=== PATIENT | male | born 1935 | race Caucasian/White ===

== ENCOUNTER 2017-10-28 23:39 | Emergency (ER) | payer OTHER ==
[~2017-10-28] VITALS: Ht 170.2 cm; Wt 99.2 kg
[~2017-10-28 23:39] MED LIST: ACCU-CHEK COMPACT ST; ALEVE LIQUID G220 MG; AMARYL1 MG PO; BENTYL10 MG; LOTREL 10/21 CAPSULE PO; METFORMIN HCL1000 M1 PO; NEURONTIN300 MG PO; NORTRIPTYLINE H10 MG; OMEPRAZOLE40 M1 PO; PRANDIN2 MG; PRANDIN2 MG PO; SIMVASTATIN40 MG PO; SOFTCLIX1 EAC2; VITAMIN B-1250 MC3; ZOFRAN4 MG PO
[2017-10-29 00:05] VITALS: BP 136/69
== END 2017-10-29 01:00 | disposition left against medical advice (07) ==
LOC: EME 23:39
DX: R73.9 Hyperglycemia, unspecified (principal); Z53.21 Procedure and treatment not carried out due to patient leaving prior to being seen by health care provider
CPT/HCPCS: 82948

== ENCOUNTER 2017-11-15 01:59 | Observation (INO) | payer OTHER ==
[~2017-11-15] VITALS: Ht 170.2 cm; Wt 104.8 kg
[~2017-11-15 01:59] MED LIST changes: -AMARYL1 MG PO; +AMARYL2 MG PO; +ATORVASTATIN CA20 MG PO; -BENTYL10 MG; +BENTYL10 MG PO; +CYANOCOBAL1000 MCG/2 IM; -OMEPRAZOLE40 M1 PO; +PROTONIX40 MG PO; -SIMVASTATIN40 MG PO; -VITAMIN B-1250 MC3
[2017-11-15 02:24] LABS: HEMATOCRIT 32.7 % (38.0-50.0); HEMOGLOBIN 11.6 G/DL (12.5-16.6); MCH 34.6 PG (29.0-34.0); MCHC 35.5 G/DL (30.0-36.0); MCV 97.6 FL (86-99); PLATELET COUNT 213 K/uL (156-360); RBC DIS.WIDTH-CV 12.3 % (11.8-14.6); RBC DIS.WIDTH-SD 44.3 % (39-53); RED BLOOD COUNT 3.35 M/uL (4.00-5.50); WHITE BLOOD COUNT 7.1 K/uL (4.1-10.2)
[2017-11-15 02:32] LABS: CHLORIDE 100 mEq/L (99-109); POTASSIUM 4.6 mEq/L (3.7-5.4); SODIUM 134 mEq/L (136-147)
[2017-11-15 02:35] LABS: GLUCOSE 297 mg/dL (70-99); TOTAL PROTEIN 6.6 g/dL (6.4-8.3)
[2017-11-15 02:37] LABS: TOTAL BILIRUBIN 0.5 mg/dL (0.0-1.0)
[2017-11-15 02:38] LABS: ALKALINE PHOSPHATASE 53 IU/L (3-129); CREATININE 1.6 mg/dL (0.6-1.3); GFR ESTIMATE (CALCULATED) 44 mL/min/ (58.99-99999)
[2017-11-15 02:39] LABS: UREA NITROGEN (BUN) 31 mg/dL (9-23)
[2017-11-15 02:40] LABS: AST (GOT) 13 IU/L (2-34)
[2017-11-15 02:41] LABS: ALT (GPT) 15 IU/L (3-49)
[2017-11-15 02:42] LABS: LIPASE 14 U/L (1.0-51.0)
[2017-11-15 02:44] LABS: TROP-I INTERPRETATION NEGATIVE; TROPONIN-I 0.02 ng/mL (0.0-0.30)
[2017-11-15 03:32] LABS: APPEARANCE CLEAR ((CLEAR)); BILIRUBIN NEGATIVE; BLOOD NEGATIVE; COLOR STRAW ((YELLOW)); GLUCOSE (STRIP) >=500; KETONES NEGATIVE; LEUKOCYTES NEGATIVE; NITRITE NEGATIVE; PROTEIN (STRIP) NEGATIVE; SPECIFIC GRAVITY 1.013 (1.000-1.030); UCUL ADDED? NO; UROBILINOGEN 0.2 MG/DL (0.2-1.0)
[2017-11-15 04:56] VITALS: BP 156/73
[2017-11-15 08:33] VITALS: BP 149/70
[2017-11-15] MEDS ORDERED: LANTUS 10100 UNITS/ SQ (08:48)
[2017-11-15 10:40] VITALS: BP 195/85
[2017-11-15] MEDS ORDERED: DIAZEPAM5 MG PO (12:35)
[2017-11-15] MEDS ORDERED: ASPIR-LOW81 MG PO (12:35)
[2017-11-15] MEDS ORDERED: CELECOXIB100 MG PO (12:35)
[2017-11-15] MEDS ORDERED: CHLORTHALIDONE25 MG PO (12:35)
[2017-11-15] MEDS ORDERED: ENDOCET 5-3251 EACH PO (12:35)
[2017-11-15] MEDS ORDERED: CITALOPRAM HBR20 MG PO (12:36)
[2017-11-15] MEDS ORDERED: RANITIDINE HCL150 MG PO (12:36)
[2017-11-15] MEDS ORDERED: METFORMIN HCL1000 MG PO (12:36)
[2017-11-15 15:15] VITALS: BP 118/57
[2017-11-16] VITALS (7 sets, daily range): BP systolic 150–191; BP diastolic 67–86
[2017-11-16 06:23] LABS: HEMATOCRIT 33.2 % (38.0-50.0); HEMOGLOBIN 11.6 G/DL (12.5-16.6); MCH 34.1 PG (29.0-34.0); MCHC 34.9 G/DL (30.0-36.0); MCV 97.6 FL (86-99); PLATELET COUNT 237 K/uL (156-360); RBC DIS.WIDTH-CV 12.6 % (11.8-14.6); RBC DIS.WIDTH-SD 44.9 % (39-53); WHITE BLOOD COUNT 5.3 K/uL (4.1-10.2)
[2017-11-16 06:32] LABS: ALBUMIN 3.9 G/DL (3.2-4.8); ALKALINE PHOSPHATASE 48 IU/L (3-129); ALT (GPT) 12 IU/L (3-49); AST (GOT) 13 IU/L (2-34); CHLORIDE 105 MEQ/L (99-109); CREATININE 1.1 MG/DL (0.6-1.3); GFR ESTIMATE (CALCULATED) > 59 mL/min/ (58.99-99999); GLUCOSE 166 mg/dL (70-99); SODIUM 138 MEQ/L (136-147); TOTAL BILIRUBIN 0.5 MG/DL (0.0-1.0); TOTAL PROTEIN 6.6 G/DL (6.4-8.3); UREA NITROGEN (BUN) 20 mg/dL (9-23)
[2017-11-16 09:29] LABS: HEMOGLOBIN A1c (GLYCOHEMOGLOB) 8.5 % (Below 5.7)
[2017-11-17 00:43] VITALS: BP 143/68
[2017-11-17 04:50] LABS: HEMATOCRIT 32.2 % (38.0-50.0); HEMOGLOBIN 11.6 G/DL (12.5-16.6); MCH 34.9 PG (29.0-34.0); PLATELET COUNT 211 K/uL (156-360); RBC DIS.WIDTH-CV 12.4 % (11.8-14.6); RED BLOOD COUNT 3.32 M/uL (4.00-5.50)
[2017-11-17 05:00] LABS: CHLORIDE 107 mEq/L (99-109); POTASSIUM 4.1 mEq/L (3.7-5.4)
[2017-11-17 05:01] LABS: SODIUM 139 mEq/L (136-147)
[2017-11-17 05:02] LABS: GLUCOSE 224 mg/dL (70-99)
[2017-11-17 05:06] LABS: CREATININE 1.2 mg/dL (0.6-1.3); GFR ESTIMATE (CALCULATED) > 59 mL/min/ (58.99-99999)
[2017-11-17 05:07] LABS: UREA NITROGEN (BUN) 21 mg/dL (9-23)
[2017-11-17 08:00] VITALS: BP 135/69
[2017-11-17 11:18] VITALS: BP 116/60
[2017-11-17] MEDS ORDERED: LYRICA75 MG PO (14:15)
[2017-11-17] MEDS ORDERED: Salonpas 4% Patch TD (14:15)
[2017-11-17] MEDS ORDERED: HYDROCODON-ACE1 EAC7 PO (14:15)
== END 2017-11-17 16:06 ==
LOC: EME → EDBD 01:59 → EME 01:59 → EDOF 03:53 → 4SOUTH 03:53 → EDOF 03:53 → ENRESERV 03:55 → 4SOUTH 04:45
PROVIDERS: Emergency Medicine; Internal Medicine; Student in an Organized Health Care Education/Training Program
DX: N17.9 Acute kidney failure, unspecified (principal); M54.5 Low back pain; R53.1 Weakness; R26.89 Other abnormalities of gait and mobility; R29.6 Repeated falls; M51.16 Intervertebral disc disorders with radiculopathy, lumbar region; E78.5 Hyperlipidemia, unspecified; E11.40 Type 2 diabetes mellitus with diabetic neuropathy, unspecified; D64.9 Anemia, unspecified; E87.1 Hypo-osmolality and hyponatremia; I10 Essential (primary) hypertension; G89.29 Other chronic pain; E11.65 Type 2 diabetes mellitus with hyperglycemia; E78.00 Pure hypercholesterolemia, unspecified; Z85.46 Personal history of malignant neoplasm of prostate
CPT/HCPCS: 72131; 80048; 80053; 81003; 82948; 83036; 83690; 84484; 85027; 93005; 97530 GO; 97530 GP; 99281; 99285; G0378; G8978 GP CJ; G8979 GP CI; G8980 CJ; G8987 GO CJ; G8988 CI; G8989 CJ; J1644; J1815; J3010; J7030

== ENCOUNTER 2018-01-18 13:39 | Observation (INO) | payer OTHER ==
[~2018-01-18] VITALS: Ht 165.1 cm; Wt 96.4 kg
[~2018-01-18 13:39] MED LIST changes: +ASPIR-LOW81 MG PO; +CELECOXIB100 MG PO; +CHLORTHALIDONE25 MG PO; +CITALOPRAM HBR20 MG PO; +DIAZEPAM5 MG PO; +ENDOCET 5-3251 EACH PO; +HYDROCODON-ACE1 EAC7 PO; +LANTUS 10100 UNITS/ SQ; +LYRICA75 MG PO; +METFORMIN HCL1000 MG PO; +RANITIDINE HCL150 MG PO; +Salonpas 4% Patch TD
[2018-01-18 14:34] LABS: BASOPHIL (%) 0.2 % (0-1); EOSINOPHIL (%) 2.5 % (0-5); EOSINOPHIL COUNT 0.1 K/uL (0-0.3); HEMATOCRIT 33.5 % (38.0-50.0); IMMATURE GRANULOCYTE (%) 0.6 % (0.0-0.7); LYMPHOCYTE (%) 29.6 % (15-42); LYMPHOCYTE COUNT 1.5 K/uL (1.0-2.8); MCH 35.2 PG (29.0-34.0); MCHC 35.8 G/DL (30.0-36.0); MCV 98.2 FL (86-99); MONOCYTE COUNT 0.6 K/uL (0-0.8); NEUTROPHIL (%) 55.1 % (45-76); NEUTROPHIL COUNT 2.9 K/uL (1.8-6.4); PLATELET COUNT 228 K/uL (156-360); RBC DIS.WIDTH-CV 12.3 % (11.8-14.6); RBC DIS.WIDTH-SD 44.4 % (39-53); RED BLOOD COUNT 3.41 M/uL (4.00-5.50); WHITE BLOOD COUNT 5.2 K/uL (4.1-10.2)
[2018-01-18 15:16] LABS: TROP-I INTERPRETATION NEGATIVE; TROPONIN-I 0.01 ng/mL (0.0-0.30)
[2018-01-18 15:19] LABS: ALBUMIN 3.9 G/DL (3.2-4.8); ALKALINE PHOSPHATASE 59 IU/L (3-129); ALT (GPT) 12 IU/L (3-49); AST (GOT) 14 IU/L (2-34); CHLORIDE 97 MEQ/L (99-109); CREATININE 1.3 MG/DL (0.6-1.3); GFR ESTIMATE (CALCULATED) 56 mL/min/ (58.99-99999); GLUCOSE 202 mg/dL (70-99); LIPASE 15 U/L (1.0-51.0); POTASSIUM 4.7 MEQ/L (3.7-5.4); SODIUM 131 MEQ/L (136-147); TOTAL BILIRUBIN 0.5 MG/DL (0.0-1.0); TOTAL PROTEIN 6.4 G/DL (6.4-8.3); UREA NITROGEN (BUN) 17 mg/dL (9-23)
[2018-01-18 16:14] LABS: APPEARANCE CLEAR ((CLEAR)); BILIRUBIN NEGATIVE; BLOOD NEGATIVE; COLOR YELLOW ((YELLOW)); GLUCOSE (STRIP) 50; KETONES NEGATIVE; LEUKOCYTES NEGATIVE; NITRITE NEGATIVE; PROTEIN (STRIP) NEGATIVE; SPECIFIC GRAVITY 1.014 (1.000-1.030); UCUL ADDED? NO; UROBILINOGEN 0.2 MG/DL (0.2-1.0)
[2018-01-18 22:18] LABS: TROP-I INTERPRETATION NEGATIVE; TROPONIN-I 0.01 ng/mL (0.0-0.30)
[2018-01-19 00:04] VITALS: BP 136/67
[2018-01-19 03:31] LABS: ALBUMIN 3.4 g/dL (3.2-4.8)
[2018-01-19 03:32] LABS: CHLORIDE 103 mEq/L (99-109); POTASSIUM 3.9 mEq/L (3.7-5.4); SODIUM 135 mEq/L (136-147)
[2018-01-19 03:34] LABS: GLUCOSE 297 mg/dL (70-99); TOTAL PROTEIN 5.6 g/dL (6.4-8.3)
[2018-01-19 03:36] LABS: TOTAL BILIRUBIN 0.4 mg/dL (0.0-1.0)
[2018-01-19 03:37] LABS: ALKALINE PHOSPHATASE 56 IU/L (3-129)
[2018-01-19 03:38] LABS: CREATININE 1.2 mg/dL (0.6-1.3); GFR ESTIMATE (CALCULATED) > 59 mL/min/ (58.99-99999); TROP-I INTERPRETATION NEGATIVE; TROPONIN-I 0.02 ng/mL (0.0-0.30)
[2018-01-19 03:39] LABS: AST (GOT) 14 IU/L (2-34); UREA NITROGEN (BUN) 13 mg/dL (9-23)
[2018-01-19 03:41] LABS: ALT (GPT) 14 IU/L (3-49)
[2018-01-19 04:00] VITALS: BP 162/74
[2018-01-19 04:51] LABS: HDL CHOLESTEROL 39 MG/DL (Desirable>=40); LDL CHOLESTEROL 41 mg/dL (Desirable<100); NON-HDL CHOLESTEROL 61 mg/dL (Desirable<160); TOTAL CHOLESTEROL 100 mg/dL (Desirable<200); TRIGLYCERIDES 99 MG/DL (Normal: <150)
[2018-01-19 08:09] VITALS: BP 153/69
[2018-01-19 12:03] VITALS: BP 148/66
== END 2018-01-19 15:05 | disposition home or self-care (01) ==
LOC: EME 13:39 → EDOF 19:09 → 4SOUTH 19:09 → ENRESERV 19:16 → 4SOUTH 22:42
PROVIDERS: Emergency Medicine; Hospitalist; Physician Assistant Medical
DX: R07.89 Other chest pain (principal); I71.2 Thoracic aortic aneurysm, without rupture; I16.0 Hypertensive urgency; E11.65 Type 2 diabetes mellitus with hyperglycemia; R94.31 Abnormal electrocardiogram [ECG] [EKG]; M19.90 Unspecified osteoarthritis, unspecified site; I13.10 Hypertensive heart and chronic kidney disease without heart failure, with stage 1 through stage 4 chronic kidney disease, or unspecified chronic kidney disease; E11.22 Type 2 diabetes mellitus with diabetic chronic kidney disease; N18.3 Chronic kidney disease, stage 3 (moderate); E11.40 Type 2 diabetes mellitus with diabetic neuropathy, unspecified; E78.5 Hyperlipidemia, unspecified; K21.9 Gastro-esophageal reflux disease without esophagitis; E53.8 Deficiency of other specified B group vitamins; M48.061 Spinal stenosis, lumbar region without neurogenic claudication; M54.16 Radiculopathy, lumbar region; R29.6 Repeated falls; Z85.46 Personal history of malignant neoplasm of prostate; Z92.21 Personal history of antineoplastic chemotherapy; Z92.3 Personal history of irradiation; G89.29 Other chronic pain; M54.9 Dorsalgia, unspecified; E66.9 Obesity, unspecified; Z68.33 Body mass index [BMI] 33.0-33.9, adult; E87.1 Hypo-osmolality and hyponatremia; D64.9 Anemia, unspecified; I45.10 Unspecified right bundle-branch block; I95.9 Hypotension, unspecified; Z79.82 Long term (current) use of aspirin; Z82.49 Family history of ischemic heart disease and other diseases of the circulatory system
CPT/HCPCS: 71046; 74177; 80053; 80061; 81003; 82948; 83690; 84484; 85025; 93005; 99281; 99285; G0378; J1644; J1815; J7030; J7040